=== PATIENT | male | born 1970 | race Two or more races ===

== ENCOUNTER 2021-06-29 14:47 | Outpatient (CLI) | payer OTHER | END 2021-06-29 14:54 | disposition home or self-care (01) | LOC: RAD 14:47 | PROVIDERS: ATTEND Physical Medicine & Rehabilitation | DX: M54.2 Cervicalgia (principal) ==

== ENCOUNTER 2023-05-30 19:38 | Emergency (ER) | payer OTHER ==
[~2023-05-30] VITALS: Ht 180.3 cm; Wt 98.9 kg
[2023-05-30 21:12] LABS: HEMATOCRIT 45.8 % (39.0-48.0); HEMOGLOBIN 15.8 g/dL (13-16.00); MEAN CELL VOLUME 85.5 fL (80.0-100.00); MEAN CORPUSCULAR HEMOGLOBIN 29.4 pg (27.00-32.0); MEAN CORPUSCULAR HGB CONC 34.4 g/dl (32.0-36.0); PLATELET COUNT 254 K/uL (150-450); RED BLOOD COUNT 5.36 M/uL (4.00-6.00); RED CELL DISTRIBUTION WIDTH 12.9 % (11.5-14.5)
== END 2023-05-30 22:32 | disposition home or self-care (01) ==
LOC: ER 19:38
PROVIDERS: General Practice
DX: J06.9 Acute upper respiratory infection, unspecified (principal); H60.90 Unspecified otitis externa, unspecified ear

== ENCOUNTER 2023-08-08 11:34 | Outpatient (CLI) | payer OTHER | END 2023-08-08 11:35 | disposition home or self-care (01) | LOC: SONOGRAMA 11:34 | PROVIDERS: ATTEND Specialist | DX: D17.1 Benign lipomatous neoplasm of skin and subcutaneous tissue of trunk (principal) ==